=== PATIENT | male | born 1975 | race Two or more races ===

== ENCOUNTER 2019-11-04 18:40 | Emergency (ER) | payer OTHER ==
[~2019-11-04] VITALS: Ht 170.2 cm; Wt 86.6 kg
[2019-11-04] MEDS ORDERED: FLUORESCEIN OPHTHALMIC 1 MG STRIP ONE (19:11)
[2019-11-04] MEDS ORDERED: PROPARACAINE OPHTH 0.5%, 15ML ONE (19:12)
[2019-11-04 19:23] VITALS: BP 125/82
== END 2019-11-04 20:35 | disposition home or self-care (01) ==
LOC: ED 20:15
DX: H02.845 Edema of left lower eyelid (principal)
CPT/HCPCS: 99282; 99283

== ENCOUNTER → 2021-01-11 | Outpatient (CLI) | payer BC | END | disposition home or self-care (01) | LOC: RAD 14:38 | PROVIDERS: ATTEND Nurse Practitioner Family | DX: K76.0 Fatty (change of) liver, not elsewhere classified (principal); R74.8 Abnormal levels of other serum enzymes | CPT/HCPCS: 76700 ==